=== PATIENT | male | born 1960 | race Caucasian/White ===

== ENCOUNTER 2017-09-22 11:49 | Emergency (ER) | payer OTHER ==
[~2017-09-22] VITALS: Ht 167.6 cm; Wt 68.0 kg
[~2017-09-22 11:49] MED LIST: HYDRODIURIL25 MG PO; PERCOCET 325 MG1 TA7 PO; PREDNICOT20 MG PO; ZITHROMAX Z PA250 MG PO
[2017-09-22] MEDS ORDERED: NAPROXEN500 MG PO (11:59)
[2017-09-22 13:11] LABS: BASO # 0.1 10*3/uL (0.0-0.1); BASO % 1.1 % (0.0-1.0); EOS # 0.1 10*3/uL (0.0-0.4); EOS % 2.1 % (1.0-4.0); HEMATOCRIT 46.7 % (42.0-52.0); HEMOGLOBIN 16.6 g/dl (14.0-18.0); LYMPH # 1.8 10*3/uL (1.3-4.4); LYMPH % 28.8 % (27.0-41.0); MEAN CELL VOLUME 94.7 fl (80.0-94.0); MEAN CORPUSCULAR HGB 33.7 pg (27.0-31.0); MEAN CORPUSCULAR HGB CONC 35.5 g/dl (33.0-37.0); MEAN PLATELET VOLUME 9.4 fl (9.6-12.3); MONO # 0.9 10*3/uL (0.1-1.0); NEUT # 3.3 10*3/uL (2.3-7.9); NEUT % 52.7 % (47.0-73.0); PLATELET COUNT AUTOMATED 204 10*3/uL (130-400); RED BLOOD COUNT 4.93 10*6/uL (4.50-5.90); RED CELL DISTRI WIDTH 12.6 % (0-14.5); WHITE BLOOD COUNT 6.3 10*3/uL (4.8-10.8)
[2017-09-22 13:26] LABS: ALBUMIN 4.1 gm/dl (3.1-4.5); ALKALINE PHOSPHATASE 81 U/L (45-117); BUN 13 mg/dl (7-24); CHLORIDE 97 mmol/L (98-107); CREATININE 0.81 mg/dL (0.70-1.30); LIPASE 144 U/L (73-393); POTASSIUM 3.8 mmol/L (3.5-5.1); SGOT/AST 26 IU/L (3-35); SGPT/ALT 27 U/L (12-78); SODIUM 132 mmol/L (136-145); TOTAL PROTEIN 7.7 gm/dL (6.4-8.2)
== END 2017-09-22 15:22 | disposition home or self-care (01) ==
LOC: ED 11:49
PROVIDERS: Emergency Medicine
DX: S39.011A Strain of muscle, fascia and tendon of abdomen, initial encounter (principal); F17.200 Nicotine dependence, unspecified, uncomplicated; F10.10 Alcohol abuse, uncomplicated; Z79.899 Other long term (current) drug therapy; X50.0XXA Overexertion from strenuous movement or load, initial encounter; Y93.89 Activity, other specified; Y92.89 Other specified places as the place of occurrence of the external cause; Y99.8 Other external cause status

== ENCOUNTER 2019-07-20 17:14 | Observation (INO) | payer OTHER ==
[~2019-07-20] VITALS: Ht 180.3 cm; Wt 66.5 kg
[~2019-07-20 17:14] MED LIST changes: +HYDROCHLOROTHIA25 M1 PO; +Motrin,Rufen800 MG PO; +NAPROXEN500 MG PO; +NORCO 5-325 TA1 EACH PO; +SPIRIVA -- 3018 MCG INH; +SYMB160 INH
[2019-07-20 17:19] VITALS: BP 123/65
[2019-07-20 17:44] LABS: HEMATOCRIT 41.2 % (42.0-52.0); HEMOGLOBIN 14.4 g/dl (14.0-18.0); MEAN CELL VOLUME 92.8 fl (80.0-94.0); MEAN CORPUSCULAR HGB 32.4 pg (27.0-31.0); MEAN PLATELET VOLUME 9.7 fl (9.6-12.3); PLATELET COUNT AUTOMATED 148 10*3/uL (130-400); RED BLOOD COUNT 4.44 10*6/uL (4.50-5.90); RED CELL DISTRI WIDTH 12.5 % (0-14.5); WHITE BLOOD COUNT 4.4 10*3/uL (4.8-10.8)
[2019-07-20 17:49] LABS: ACT PARTIAL THROMBO TIME 31.2 SECONDS (20.0-32.1); INTERNATIONAL NORM RATIO 0.9 (2.0-3.5)
[2019-07-20 17:53] LABS: ALBUMIN 3.5 gm/dl (3.1-4.5); ALKALINE PHOSPHATASE 87 U/L (45-117); BUN 17 mg/dl (7-24); CHLORIDE 98 mmol/L (98-107); CREATININE 0.78 mg/dL (0.70-1.30); POTASSIUM 3.5 mmol/L (3.5-5.1); SGOT/AST 28 IU/L (3-35); SGPT/ALT 35 U/L (12-78); SODIUM 131 mmol/L (136-145); TOTAL PROTEIN 7.1 gm/dL (6.4-8.2)
[2019-07-20 17:55] LABS: TROPONIN I < 0.015 ng/ml (<0.045)
[2019-07-20 18:01] LABS: ATYPICAL LYMPHS 3 % (0-0); TOTAL CELLS COUNTED 100 #CELLS
[2019-07-20 18:02] LABS: PLATELET SUFFICIENCY NORMAL (NORMAL)
[2019-07-20 18:45] VITALS: BP 131/81
--- NOTE | 2019-07-20 19:06 | NUR ---
NURSE TO NURSE REPORT GIVEN TO THIS RN.PT AWAITING BED ON UNIT.
[2019-07-20 19:44] VITALS: BP 130/70
--- NOTE | 2019-07-20 19:44 | NUR ---
PT TO UNIT AT THIS TIME.
[2019-07-20 20:00] VITALS: BP 133/69
--- NOTE | 2019-07-20 20:00 | NUR ---
A 59, admitted to , under the services of JIMI Wyatt DO with a diagnosis of CHEST PAIN. Chief complaint is LEFT SIDED CHEST PAIN. Patient arrived via ambulatory from ER. Monitor applied. Initial assessment completed. Vital signs taken and recorded. JIMI WYATT DO notified of admission to the unit. Orders received. See assessment for past medical history, medications and allergies. Patient and/or family oriented to unit. [facility] visitation policy reviewed. Clothing/patient valuable form completed. KEIR VILLAGRAN
[2019-07-20] MEDS ORDERED: TRELEGY ELLIPT1 EACH INH (20:09)
[2019-07-20] MEDS ORDERED: TRAMADOL HCL50 MG PO (20:11)
--- NOTE | 2019-07-20 20:22 | NUR ---
MED REC UPDATED. NOTIFIED.
--- NOTE | 2019-07-20 23:59 | NUR ---
24HR/SHIFT CHART CHECK COMPLETED.
[2019-07-21] VITALS: BP 137/78
[2019-07-21 07:53] LABS: HEMATOCRIT 42.7 % (42.0-52.0); HEMOGLOBIN 14.8 g/dl (14.0-18.0); MEAN CELL VOLUME 95.3 fl (80.0-94.0); MEAN CORPUSCULAR HGB CONC 34.7 g/dl (33.0-37.0); MEAN PLATELET VOLUME 9.7 fl (9.6-12.3); PLATELET COUNT AUTOMATED 139 10*3/uL (130-400); RED BLOOD COUNT 4.48 10*6/uL (4.50-5.90); RED CELL DISTRI WIDTH 12.7 % (0-14.5); WHITE BLOOD COUNT 3.9 10*3/uL (4.8-10.8)
[2019-07-21 08:00] VITALS: BP 128/70
--- NOTE | 2019-07-21 08:00 | NUR ---
Patient resting quietly with no c/o discomfort. Respirations easy and regular. Vital signs stable. No overt distress. LAWSON JOYCE 24 HR chart check completed.
[2019-07-21 08:04] LABS: INTERNATIONAL NORM RATIO 0.9 (2.0-3.5)
[2019-07-21 08:11] LABS: ALBUMIN 3.1 gm/dl (3.1-4.5); BUN 12 mg/dl (7-24); CHLORIDE 102 mmol/L (98-107); CHOLESTEROL 152 mg/dL (<200); CREATININE 0.69 mg/dL (0.70-1.30); HDL CHOLESTEROL 56 mg/dl (40-60); LDL CHOLESTEROL 86 mg/dL (9-159); POTASSIUM 3.3 mmol/L (3.5-5.1); SGOT/AST 33 IU/L (3-35); SGPT/ALT 37 U/L (12-78); SODIUM 134 mmol/L (136-145); TOTAL PROTEIN 6.5 gm/dL (6.4-8.2); TRIGLYCERIDES 51 mg/dl (<150); VLDL CHOLESTEROL 10 mg/dL (6-40)
[2019-07-21 08:17] LABS: ALKALINE PHOSPHATASE 70 U/L (45-117); THYROID STIM HORMONE (HS) 0.263 uIU/ml (0.358-4.75)
[2019-07-21 09:05] LABS: VITAMIN D, 25-HYDROXY 18.2 ng/mL (30-100)
[2019-07-21 09:12] LABS: TOTAL CELLS COUNTED 100 #CELLS
[2019-07-21 09:13] LABS: PLATELET SUFFICIENCY NORMAL (NORMAL)
--- NOTE | 2019-07-21 10:12 | NUR ---
Transit Department Clerk in to talk to patient. Patient states lives at HOME with GIRLFRIEND. There are GRE steps in the home. Physician: JIMI BRITO Pharmacy: [facility] Home health services: NONE Patient's level of ADLs: INDEPENDENT Patient has working utilities: YES DME: NONE Follow-up physician's appointment after d/c: WILL BE MADE BY HOSPITALIST NURSE DIRECTOR ON DISCHARGE Does patient want to access PORTAL?: NO Discharge plan PT LIVES AT HOME WITH GIRLFRIEND AND IS INDEPENDENT IN HIS CARE. DENIES HE WILL HAVE ANY NEEDS AND STATES HE WILL RETURN HOME WHEN MEDICALLY STABLE. WILL CONTINUE TO FOLLOW. STATES HE WILL HAVE A RIDE HOME.. CARLITOS GUTIERREZ
--- NOTE | 2019-07-21 11:41 | NUR ---
LEAVING IN CARE OF AND AMBULATORY.
== END 2019-07-21 11:41 | disposition home or self-care (01) ==
LOC: ED 17:14 → EDHOLD 18:21 → 4E 19:08
PROVIDERS: Emergency Medicine; Student in an Organized Health Care Education/Training Program; ADMIT Emergency Medicine
DX: R07.89 Other chest pain (principal); E44.1 Mild protein-calorie malnutrition; E87.1 Hypo-osmolality and hyponatremia; I10 Essential (primary) hypertension; J43.9 Emphysema, unspecified; F17.210 Nicotine dependence, cigarettes, uncomplicated; Z72.89 Other problems related to lifestyle

== ENCOUNTER → 2019-08-16 | Outpatient (CLI) | payer OTHER ==
[~2019-08-16] MED LIST changes: +TRAMADOL HCL50 MG PO; +TRELEGY ELLIPT1 EACH INH
--- NOTE | 2019-08-16 11:30 | NUR ---
INFORMED CONSENT OBTAINED FOR AN EXERCISE CARDIOLITE STRESS TEST WITH DR. HOOK. RESTING EKG NSR WITH A SUPINE HT RT OF 69, AND A BP OF 120/66 AND A T RT OF 86, AND A BP OF 108/62 IN STANDING POSITION. PT COMPLETED 4:22 OF A REBECCA PROTOCOL WITH COMPLETION OF 1:22 OF STAGE II HELD AT 2.5 MPH AND 12% GRADE. REACHED A PEAK HT RT OF 130 WHICH IS 82% OF PREDICTED MAX WITH A PEAK BP OF 148/60. TEST TERMINATED DUE TO FATIGUE AND PHYSICIAN PREFERENCE. EKG NONDIAGNOSTIC. HAS AN AVERAGE EXERCISE TOLERANCE. LAST RECOVERY HT RT OF 86, WITH A BP OF 120/64. AWAITING SCANNING IN STABLE CONDITION.
== END | disposition home or self-care (01) ==
LOC: CARD 00:12
DX: I10 Essential (primary) hypertension (principal); R94.31 Abnormal electrocardiogram [ECG] [EKG]; Z82.49 Family history of ischemic heart disease and other diseases of the circulatory system; Z72.0 Tobacco use; Z78.9 Other specified health status

== ENCOUNTER 2020-08-19 16:03 | Emergency (ER) | payer OTHER ==
[~2020-08-19] VITALS: Ht 182.8 cm; Wt 72.6 kg
[2020-08-19] MEDS ORDERED: PERCOCET 5-3251 EACH PO (18:41)
== END 2020-08-19 19:03 | disposition home or self-care (01) ==
LOC: ED 16:03
DX: S70.02XA Contusion of left hip, initial encounter (principal); I10 Essential (primary) hypertension; F17.200 Nicotine dependence, unspecified, uncomplicated; Z79.899 Other long term (current) drug therapy; Z98.890 Other specified postprocedural states; X58.XXXA Exposure to other specified factors, initial encounter; Y93.89 Activity, other specified; Y92.89 Other specified places as the place of occurrence of the external cause; Y99.8 Other external cause status

== ENCOUNTER → 2021-03-30 | Outpatient (CLI) | payer OTHER ==
[~2021-03-30] MED LIST changes: +PERCOCET 5-3251 EACH PO
[2021-03-30 11:17] LABS: BUN 9 mg/dl (7-24); CHLORIDE 101 mmol/L (98-107); CHOLESTEROL 145 mg/dL (<200); CREATININE 0.69 mg/dL (0.70-1.30); POTASSIUM 3.4 mmol/L (3.5-5.1); SGOT/AST 24 IU/L (3-35); SGPT/ALT 21 U/L (12-78); SODIUM 137 mmol/L (136-145); TRIGLYCERIDES 77 mg/dl (<150)
[2021-03-30 11:18] LABS: LDL CHOLESTEROL 84 mg/dL (9-159)
== END | disposition home or self-care (01) ==
LOC: LAB 10:18
PROVIDERS: ATTEND Internal Medicine Cardiovascular Disease
DX: I10 Essential (primary) hypertension (principal)

== ENCOUNTER → 2022-11-25 | Outpatient (CLI) | payer OTHER ==
[~2022-11-25] MED LIST changes: +AEROECLIPSE II1 EACH MC; +PREDNISONE50 MG PO; +VENTOLIN 02.5 MG/3 M INH; +VIBRAMYCIN100 MG PO
== END | disposition home or self-care (01) ==
LOC: RAD 12:28
PROVIDERS: ATTEND Internal Medicine Hematology & Oncology
DX: C34.11 Malignant neoplasm of upper lobe, right bronchus or lung (principal); J43.9 Emphysema, unspecified